=== PATIENT | female | born 2000 | race Caucasian/White ===

== ENCOUNTER 2022-08-31 17:18 | Inpatient (IN) | payer OTHER ==
[~2022-08-31] VITALS: Ht 165.1 cm; Wt 59.1 kg
[2022-08-31] MEDS ORDERED: ONDANSETRON 4MG ODT PO STA (18:11)
[2022-08-31 18:43] LABS: HEMATOCRIT. 39.6 % (36.0-48.0); HEMOGLOBIN. 13.4 g/dL (12.0-16.0); MEAN CORPUSCULAR HEMOGLOBIN 30.2 pg (28.0-32.0); MEAN PLATELET VOLUME 8.1 fl (7.4-10.4); PLATELET 393 x1000/uL (130-400); RED BLOOD CELL COUNT 4.45 mill/uL (4.2-5.4)
[2022-08-31 18:46] LABS: CLARITY URINE CLOUDY (CLEAR); COLOR URINE YELLOW (YELLOW); KETONES URINE 1+ (NEGATIVE); LEUKOCYTE ESTERASE URINE NEGATIVE (NEGATIVE); NITRITE URINE NEGATIVE (NEGATIVE); OCCULT BLOOD URINE NEGATIVE (NEGATIVE); PH URINE 8.5 (4.5-8.0); PROTEIN URINE TRACE (NEGATIVE); SPECIFIC GRAVITY URINE 1.021 (1.005-1.030); UROBILINOGEN URINE 0.2 E.U./dL (0.2-1.0)
[2022-08-31 18:54] LABS: HCG SCREEN NEGATIVE
[2022-08-31 18:55] LABS: CHLORIDE 105 mEq/L (98-107)
[2022-08-31 18:59] LABS: PLATELET ESTIMATE NORMAL
[2022-08-31 19:01] LABS: ETHANOL BLOOD < 10 mg/dL
[2022-08-31 19:21] LABS: *AMPHETAMINES SCREEN URINE NEGATIVE (NEGATIVE); *BARBITURATES SCREEN URINE NEGATIVE (NEGATIVE); *BENZODIAZEPINES SCREEN URINE NEGATIVE (NEGATIVE); *COCAINE SCREEN URINE NEGATIVE (NEGATIVE); METHADONE URINE SCREEN NEGATIVE (NEGATIVE); OPIATES URINE SCREEN NEGATIVE (NEGATIVE); PHENCYCLIDINE URINE SCREEN NEGATIVE (NEGATIVE)
[2022-08-31 19:25] LABS: CANNABINOID URINE SCREEN PRESUMTIVE POSITIVE (NEGATIVE)
[2022-08-31] MEDS ORDERED: ONDANSETRON HCL 4MG/2ML INJ IV STA (19:44)
[2022-08-31] MEDS ORDERED: SODIUM CHLORIDE 0.9% 1,000 ML IV ONE (19:45)
[2022-08-31] MEDS ORDERED: KETOROLAC 30MG/ML VIAL IV STA (20:07)
[2022-08-31] MEDS ORDERED: LEVOFLOXACIN 750MG PREMIX 150 ML IV ONE (20:15)
[2022-08-31] MEDS ORDERED: METRONIDAZOLE 500 MG PREMIX 100 ML IV ONE (21:45)
[2022-08-31] MEDS ORDERED: METOCLOPRAMIDE HCL 10MG/2ML VIAL IV ONE (21:45)
[2022-09-01] MEDS ORDERED: ONDANSETRON HCL 4MG/2ML INJ IV ONE
[2022-09-01] MEDS ORDERED: IPRATROPIUM/ALBUTEROL 0.5-3(2.5)MG/3ML NEB NEB PRN (00:45)
[2022-09-01] MEDS ORDERED: CLONIDINE 0.1MG TABLET PO PRN (00:45)
[2022-09-01] MEDS ORDERED: DIPHENHYDRAMINE 50MG/ML VIAL IV NR (00:45)
[2022-09-01] MEDS ORDERED: ACETAMINOPHEN 650MG SUPP PR PRN ×2 (00:45)
[2022-09-01] MEDS ORDERED: LORAZEPAM 2MG/ML CPJ IV PRN (00:45)
[2022-09-01] MEDS ORDERED: CAPSAICIN 0.075% CREAM 60GM TOP SCH (00:45)
[2022-09-01] MEDS ORDERED: ONDANSETRON HCL 4MG/2ML INJ IV PRN (00:45)
[2022-09-01] MEDS ORDERED: LORAZEPAM 2MG/ML CPJ IV NR (00:45)
[2022-09-01] MEDS: DEXT 5%/0.45% NACL 1000ML 1,000 ML IV SCH ×2 (01:21→07:19)
[2022-09-01] MEDS ORDERED: DEXTROSE 50% WATER 50ML SYRINGE IV PRN (01:45)
[2022-09-01 02:26] VITALS: BP 98/60
[2022-09-01] MEDS ORDERED: METRONIDAZOLE 500 MG PREMIX 100 ML IV SCH (06:00)
[2022-09-01] MEDS ORDERED: BLOOD SUGAR DIAGNOSTIC STRIP TEST SCH (06:30)
[2022-09-01 07:27] LABS: BASOPHILS % 0.2 % (0.0-2.0); EOSINOPHILS % 0.1 % (0.0-5.0); HEMATOCRIT. 36.4 % (36.0-48.0); HEMOGLOBIN. 12.5 g/dL (12.0-16.0); LYMPHOCYTES % 7.9 % (20.0-50.0); MEAN CORPUSCULAR HEMOGLOBIN 30.7 pg (28.0-32.0); MEAN CORPUSCULAR VOLUME 89.5 fL (81.0-99.0); MONOCYTES % 7.8 % (2.0-8.0); RED BLOOD CELL COUNT 4.07 mill/uL (4.2-5.4); RED CELL DISTRIBUTION WIDTH 13.7 % (11.6-14.6)
[2022-09-01 07:39] LABS: INR 1.2; PARTIAL THROMBOPLASTIN TIME < 21.0 sec (23.4-31.0); PROTHROMBIN TIME 12.9 sec (9.6-11.0)
[2022-09-01 08:31] LABS: CHLORIDE 107 mEq/L (98-107)
[2022-09-01 08:45] LABS: HDL CHOLESTEROL 76 mg/dL (40-59); LDL CHOLESTEROL 69 mg/dL (5-100); T4 FREE 1.32 ng/dL (0.76-1.46)
[2022-09-01] MEDS ORDERED: PANTOPRAZOLE SODIUM 40 MG/VIAL IV SCH (09:00)
[2022-09-01 11:38] LABS: PLATELET 352 x1000/uL (130-400)
[2022-09-01] MEDS ORDERED: LEVOFLOXACIN 500MG PREMIX 100 ML IV SCH (21:00)
== END 2022-09-01 08:25 | disposition left against medical advice (07) | DRG 395 ==
LOC: ER 17:18 → MICUSO 23:55 → 6EST 09-01 04:56
PROVIDERS: ADMIT Hospitalist; ATTEND Hospitalist
DX: K37 Unspecified appendicitis (principal); F12.90 Cannabis use, unspecified, uncomplicated; F41.9 Anxiety disorder, unspecified; D72.829 Elevated white blood cell count, unspecified; Z53.29 Procedure and treatment not carried out because of patient's decision for other reasons; R73.9 Hyperglycemia, unspecified; Z88.0 Allergy status to penicillin
CPT/HCPCS: 36415; 71045; 74176; 80053; 80061; 80305; 80320; 81003; 82962; 83036; 83605; 83735; 84439; 84443; 84703; 85025; 93005; 99285; J1200; J1885; J1956; J2060; J2405; J2765; J3490; J7030; Q0162; G0480